=== PATIENT | female | born 1975 | race Caucasian/White ===

== ENCOUNTER 2019-04-19 21:33 | Emergency (ER) | payer MEDICARE, MEDICAID ==
--- NOTE | 2019-04-19 21:56 | EDM.PDOC ---
ED HPI GENERAL MEDICAL PROBLEM - General Chief Complaint: Lower Extremity Injury/Pain Stated Complaint: SURGERY APR 14 NOT DOING WELL Time Seen by Provider: 04/19/19 22:03 History Limitations: Reports: No Limitations - History of Present Illness INITIAL COMMENTS - FREE TEXT/NARRATIVE: 43 years old female patient presented with a chief complaint of worsening pain, swelling and redness of her left thigh area. She had treatment for her venous insufficiency in the left side on April 14. 2 days ago started noticing worsening pain redness and swelling. She'll contacted the office of Dr. Stewart and she was prescribed antibiotic today and she did not fill it because she is allergic to it. Denies any fever denies any chest pain or shortness breath. History of PE denies any trauma or injury other than the surgery. Denies any cough or shortness breath. Denies any abdominal pain diarrhea or constipation. Denies any urinary symptom. Left Knee Pain Score (Numeric/FACES): 8 - Related Data Allergies Allergy/AdvReac Type Severity Reaction Status Date / Time acetaminophen Allergy Rash Verified 04/19/19 22:06 [From Darvocet-N] amoxicillin [From Augmentin] Allergy Rash Verified 04/19/19 22:06 cephacetrile Allergy Rash Verified 04/19/19 22:06 cephalexin [From Keflex] Allergy Rash Verified 04/19/19 22:00 clavulanic acid Allergy Rash Verified 04/19/19 22:06 [From Augmentin] clindamycin Allergy Rash Verified 04/19/19 22:00 latex Allergy Rash Verified 04/19/19 22:00 methylphenidate Allergy Rash Verified 04/19/19 22:06 [From Ritalin] modafinil [From Provigil] Allergy Rash Verified 04/19/19 22:06 Penicillins Allergy Rash Verified 04/19/19 22:00 propoxyphene Allergy Rash Verified 04/19/19 22:06 [From Darvocet-N] silver sulfadiazine Allergy Rash Verified 04/19/19 22:00 [From Silvadene] Home Meds: Home Meds Albuterol [Proventil Neb Soln] 2.5 mg IN DAILY 04/19/19 [History] DULoxetine [Cymbalta] 60 mg PO DAILY 04/19/19 [History] Dextroamphetamine Sulfate [Dexedrine] 45 mg PO BID 04/19/19 [History] Nicotine [Nicotine Patch] 21 mg IN ASDIRECTED 04/19/19 [History] OXcarbazepine [Oxcarbazepine] 450 mg PO DAILY 04/19/19 [History] busPIRone [Buspar] 15 mg PO TID 04/19/19 [History] Review of Systems - Review of Systems Review Of Systems: ROS reveals no pertinent complaints other than HPI. ED EXAM, GENERAL - Physical Exam Exam: See Below Exam Limited By: No Limitations General Appearance: Alert, WD/WN, No Apparent Distress Ears: Normal External Exam, Normal Canal, Hearing Grossly Normal, Normal TMs Ear Exam: Bilateral Ear: Auricle Normal, Canal Normal, TM normal Nose: Normal Inspection, Normal Mucosa, No Blood Throat/Mouth: Normal Inspection, Normal Lips, Normal Teeth, Normal Gums, Normal Oropharynx, Normal Voice, No Airway Compromise Head: Atraumatic, Normocephalic Neck: Normal Inspection, Supple, Non-Tender, Full Range of Motion Respiratory/Chest: No Respiratory Distress, Lungs Clear, Normal Breath Sounds, No Accessory Muscle Use, Chest Non-Tender Cardiovascular: Normal Peripheral Pulses, Regular Rate, Rhythm, No Edema, No Gallop, No JVD, No Murmur, No Rub GI/Abdominal: Normal Bowel Sounds, Soft, Non-Tender, No Organomegaly, No Distention, No Abnormal Bruit, No Mass Rectal (Female) Exam: Normal Exam, Normal Rectal Tone Back Exam: Normal Inspection, Full Range of Motion, NT Extremities: Other ( erythema, tenderness and mild swelling of the medial side of the left thigh just above the knee. CMS intact) Neurological: Alert, Oriented, CN II-XII Intact, Normal Cognition, Normal Gait, Normal Reflexes, No Motor/Sensory Deficits Psychiatric: Normal Affect, Normal Mood Skin Exam: Warm, Dry, Intact, Normal Color, No Rash Lymphatic: No Adenopathy Course - Vital Signs Last Recorded V/S: Last Vital Signs Temp 36.1 C 04/19/19 22:06 Pulse 92 04/19/19 22:06 Resp 16 04/19/19 22:06 BP 159/80 H 04/19/19 22:06 Pulse Ox 99 04/19/19 22:06 - Orders/Labs/Meds Orders: Active Orders 24 hr Category Date Time Status Cardiac Monitoring [RC] .As Directed Care 04/19/19 22:00 Active VL Duplex Lwr Ext Veins Ltd Lt [US] Stat Exams 04/19/19 22:04 Ordered BASIC METABOLIC PANEL,BMP [CHEM] Stat Lab 04/19/19 22:12 Received C-REACTIVE PROTEIN [CHEM] Stat Lab 04/19/19 22:12 Received LACTIC ACID [CHEM] Stat Lab 04/19/19 22:12 Received Labs: Laboratory Tests 04/19/19 Range/Units 22:12 WBC 9.7 (4.5-11.0) K/uL RBC 4.28 (3.30-5.50) M/uL Hgb 13.5 (12.0-15.0) g/dL Hct 40.5 (36.0-48.0) % MCV 95 (80-98) fL MCH 32 H (27-31) pg MCHC 33 (32-36) % Plt Count 303 (150-400) K/uL Neut % (Auto) 52 (36-66) % Lymph % (Auto) 38 (24-44) % [place] % (Auto) 8 H (2-6) % Eos % (Auto) 2 (2-4) % Baso % (Auto) 0 (0-1) % - Re-Assessments/Exams Free Text/Narrative Re-Assessment/Exam: 04/19/19 22:08 Patient was seen and examined shortly after arrival. Stable. Lab and imaging reviewed. DVT study negative for DVT., Normal white count. I did consulted with Dr. Cruz general surgery on-call and he recommended to start some patient on doxycycline and have her follow-up with Dr. Stewart in the clinic within 2 days. Patient agrees with the plan. Stable for discharge. 04/19/19 22:59 Departure - Departure Time of Disposition: 23:00 Disposition: Home, Self-Care 01 Condition: Good Clinical Impression: Cellulitis - Discharge Information *PRESCRIPTION DRUG MONITORING PROGRAM REVIEWED*: Not Applicable *COPY OF PRESCRIPTION DRUG MONITORING REPORT IN PATIENT LARISSA: Not Applicable Referrals: PCP,None [Primary Care Provider] - Forms: ED Department Discharge Care Plan Goals: Rest and stay well-hydrated Follow-up with Dr. Stewart in 2 days Come back if symptom worsen - My Orders Last 24 Hours: My Active Orders 04/19/19 22:00 Cardiac Monitoring [RC] .As Directed 04/19/19 22:04 VL Duplex Lwr Ext Veins Ltd Lt [US] Stat 04/19/19 22:12 BASIC METABOLIC PANEL,BMP [CHEM] Stat C-REACTIVE PROTEIN [CHEM] Stat LACTIC ACID [CHEM] Stat - Assessment/Plan Last 24 Hours: My Active Orders 04/19/19 22:00 Cardiac Monitoring [RC] .As Directed 04/19/19 22:04 VL Duplex Lwr Ext Veins Ltd Lt [US] Stat 04/19/19 22:12 BASIC METABOLIC PANEL,BMP [CHEM] Stat C-REACTIVE PROTEIN [CHEM] Stat LACTIC ACID [CHEM] Stat Plan: Rest and stay well-hydrated Follow-up with Dr. Stewart in 2 days Come back if symptom worsen
--- NOTE | 2019-04-19 23:39 | CRLUS ---
INDICATION: Left lower extremity redness and swelling. History of Varithena procedure. LEFT LOWER EXTREMITY VENOUS DUPLEX ULTRASOUND TECHNIQUE: Duplex sonography using grayscale imaging as well as color and spectral Doppler interrogation was performed over the left lower extremity with attention to the deep venous system. FINDINGS: The left common femoral, femoral, deep femoral, popliteal, and posterior tibial veins show normal compressibility, color Doppler flow, and augmentation response. The greater saphenous vein is patent in the upper left thigh but is thrombosed in the distal left thigh and extending inferiorly to the mid calf. IMPRESSION: 1. No evidence of deep venous thrombosis in the left lower extremity. 2. Superficial venous thrombosis involving the left greater saphenous vein at the level of the distal left thigh inferiorly to the left mid calf. This may be due to the patient`s prior Varithena procedure. CAITY CURRAN MD [facility] Dictated by Odell Curran MD @ 04/19/2019 11:38:05 PM Dictated by: Odell Curran MD @ 04/19/2019 23:38:29 (Electronically Signed)
== END 2019-04-19 23:10 | disposition home or self-care (01) ==
LOC: JP.ED 21:33
DX: L03.116 Cellulitis of left lower limb (principal); Z88.0 Allergy status to penicillin; Z91.040 Latex allergy status; Z88.1 Allergy status to other antibiotic agents; Z88.8 Allergy status to other drugs, medicaments and biological substances; Z79.899 Other long term (current) drug therapy
CPT/HCPCS: 36415; 80048; 83605; 85025; 86140; 93971-LT; 99283; 99284-25

== ENCOUNTER 2019-08-27 21:42 | Emergency (ER) | payer MEDICARE, MEDICAID ==
--- NOTE | 2019-08-27 22:34 | EDM.PDOC ---
ED HPI GENERAL MEDICAL PROBLEM - General Chief Complaint: Genitourinary Problem Stated Complaint: PAIN Time Seen by Provider: 08/27/19 22:28 Source of Information: Reports: Patient History Limitations: Reports: No Limitations - History of Present Illness INITIAL COMMENTS - FREE TEXT/NARRATIVE: pt arrived with pain in the left flank area. She states the pain comes around to the front. She has been lifting and moving recently. She is not nauseated and vomiting. Onset: Other (pain started last nite. ) Duration: Hour(s): Location: Reports: Other ( left flank. ) Associated Symptoms: Reports: Other (urinary frequency. ) Left Back Pain Score (Numeric/FACES): 9 - Related Data Allergies Allergy/AdvReac Type Severity Reaction Status Date / Time acetaminophen Allergy Rash Verified 08/27/19 22:14 [From Darvocet-N] amoxicillin [From Augmentin] Allergy Rash Verified 08/27/19 22:14 cephacetrile Allergy Rash Verified 08/27/19 22:14 cephalexin [From Keflex] Allergy Rash Verified 08/27/19 22:14 clavulanic acid Allergy Rash Verified 08/27/19 22:14 [From Augmentin] clindamycin Allergy Rash Verified 08/27/19 22:14 latex Allergy Rash Verified 08/27/19 22:14 methylphenidate Allergy Rash Verified 08/27/19 22:14 [From Ritalin] modafinil [From Provigil] Allergy Rash Verified 08/27/19 22:14 Penicillins Allergy Rash Verified 08/27/19 22:14 propoxyphene Allergy Rash Verified 08/27/19 22:14 [From Darvocet-N] silver sulfadiazine Allergy Rash Verified 08/27/19 22:14 [From Silvadene] Home Meds: Home Meds Albuterol [Proventil Neb Soln] 2.5 mg IN DAILY PRN 04/19/19 [History] DULoxetine [Cymbalta] 60 mg PO DAILY 04/19/19 [History] Dextroamphetamine Sulfate [Dexedrine] 45 mg PO BID 04/19/19 [History] busPIRone [Buspar] 15 mg PO TID 04/19/19 [History] Nicotine [Nicotine Patch] 14 mg TD DAILY 08/27/19 [History] Past Medical History HEENT History: Reports: Impaired Vision Cardiovascular History: Reports: Aneurysm, Arrhythmia, Blood Clots/VTE/DVT, Hypertension Gastrointestinal History: Reports: Irritable Bowel Syndrome [employer]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: Musculoskeletal History: Reports: Arthritis Neurological History: Reports: Headaches, Chronic, Other (See Below) Other Neuro History: carotid aneurysms Psychiatric History: Reports: Anxiety, Depression, PTSD Dermatologic History: Reports: Psoriasis - Past Surgical History Head Surgeries/Procedures: Reports: None HEENT Surgical History: Reports: Oral Surgery GI Surgical History: Reports: Appendectomy, Cholecystectomy Neurological Surgical History: Reports: None Musculoskeletal Surgical History: Reports: None Dermatological Surgical History: Reports: Plastic Surgical Reconstruction/Repair Social & Family History - Family History Family Medical History: Noncontributory - Tobacco Use Smoking Status *Q: Current Every Day Smoker Years of Tobacco use: 20 Packs/Tins Daily: 0.5 Second Hand Smoke Exposure: No - Caffeine Use Caffeine Use: Reports: Soda Caffeine Use Comment: one pop per day - Recreational Drug Use Recreational Drug Use: No ED ROS GENERAL - Review of Systems Review Of Systems: See Below Constitutional: Reports: No Symptoms HEENT: Reports: No Symptoms Respiratory: Reports: No Symptoms Cardiovascular: Reports: No Symptoms Endocrine: Reports: No Symptoms GI/Abdominal: Reports: Other (pt is having left flank pain. ) : Reports: No Symptoms Musculoskeletal: Reports: Other (pain in the left flank area. ) Skin: Reports: No Symptoms Neurological: Reports: No Symptoms Psychiatric: Reports: No Symptoms ED EXAM, GI/ABD - Physical Exam Exam: See Below Text/Narrative:: pt arrived with urinary frequwncy and left flank pain. She does not have a history of kidney stones. She does not have dyuria. Exam Limited By: No Limitations General Appearance: Alert, Anxious, Mild Distress Ears: Normal TMs Nose: Normal Inspection Throat/Mouth: Normal Inspection Head: Atraumatic Neck: Normal Inspection Respiratory/Chest: No Respiratory Distress Cardiovascular: Regular Rate, Rhythm GI/Abdominal Exam: Soft, Other (pt is tender in the left flank area. she also definitely has muscle spasm above the flank area ) (Female) Exam: Deferred Rectal (Female) Exam: Deferred Back Exam: Normal Inspection Extremities: Normal Inspection Course - Vital Signs Last Recorded V/S: Last Vital Signs Temp 36.1 C 08/27/19 22:00 Pulse 90 08/27/19 22:13 Resp 16 08/27/19 22:13 BP 141/64 H 08/27/19 22:13 Pulse Ox 96 08/27/19 22:13 - Orders/Labs/Meds Orders: Active Orders 24 hr Category Date Time Status CULTURE URINE [RM] Stat Lab 08/27/19 23:12 Received Levofloxacin/Dextrose 5%-Water [Levaquin in D5W 500 MG/ Med 08/27/19 23:10 Active 100 ML] 500 mg Premix Bag 1 bag IV ONETIME Sodium Chloride 0.9% [Normal Saline] 1,000 ml Med 08/27/19 23:15 Active IV ASDIRECTED Medication Orders Sodium Chloride (Normal Saline) 1,000 mls @ 999 mls/hr IV ASDIRECTED BRI Last Admin: 08/27/19 23:36 Dose: 999 mls/hr Levofloxacin/Dextrose 500 mg/ (Premix) 100 mls @ 100 mls/hr IV ONETIME ONE Stop: 08/28/19 00:09 Last Admin: 08/27/19 23:36 Dose: 100 mls/hr Labs: Laboratory Tests 08/27/19 08/27/19 08/27/19 Range/Units 22:35 22:35 22:38 WBC 7.4 (4.5-11.0) K/uL RBC 4.26 (3.30-5.50) M/uL Hgb 12.7 (12.0-15.0) g/dL Hct 39.3 (36.0-48.0) % MCV 92 (80-98) fL MCH 30 (27-31) pg MCHC 32 (32-36) % Plt Count 290 (150-400) K/uL Neut % (Auto) 44 (36-66) % Lymph % (Auto) 45 H (24-44) % [place] % (Auto) 9 H (2-6) % Eos % (Auto) 2 (2-4) % Baso % (Auto) 0 (0-1) % Sodium 140 (140-148) mmol/L Potassium 3.7 (3.6-5.2) mmol/L Chloride 105 (100-108) mmol/L Carbon Dioxide 26 (21-32) mmol/L Anion Gap 8.8 (5.0-14.0) mmol/L BUN 9 (7-18) mg/dL Creatinine 0.7 (0.6-1.0) mg/dL Est Cr Clr Drug Dosing 91.32 mL/min Estimated GFR (MDRD) > 60 (>60) Glucose 113 H (74-106) mg/dL Calcium 8.6 (8.5-10.1) mg/dL Total Bilirubin 0.2 (0.2-1.0) mg/dL AST 16 (15-37) U/L ALT 28 (12-78) U/L Alkaline Phosphatase 68 (46-116) U/L Total Protein 7.2 (6.4-8.2) g/dL Albumin 3.4 (3.4-5.0) g/dL Globulin 3.8 H (2.3-3.5) g/dL Albumin/Globulin Ratio 0.9 L (1.2-2.2) Urine Color Yellow (YELLOW) Urine Appearance Clear (CLEAR) Urine pH 6.0 (5.0-8.0) Ur Specific [place] >= 1.030 (1.008-1.030) Urine Protein Negative (NEGATIVE) mg/dL Urine Glucose (UA) Negative (NEGATIVE) mg/dL Urine Ketones Negative (NEGATIVE) mg/dL Urine Occult Blood Negative (NEGATIVE) Urine Nitrite Negative (NEGATIVE) Urine Bilirubin Negative (NEGATIVE) Urine Urobilinogen 0.2 (0.2-1.0) EU/dL Ur Leukocyte Esterase Trace H (NEGATIVE) Urine RBC 0-5 (0-5) Urine WBC 0-5 (0-5) Ur Epithelial Cells Few Amorphous Sediment Moderate Urine Bacteria Few Urine Mucus Not seen Urine Other Meds: Medications Generic Name Dose Route Start Last Admin Trade Name Freq PRN Reason Stop Dose Admin Sodium Chloride 1,000 mls @ 999 mls/hr 08/27/19 23:15 08/27/19 23:36 Normal Saline IV 999 mls/hr ASDIRECTED BRI Administration Levofloxacin/Dextrose 500 mg/ 100 mls @ 100 mls/hr 08/27/19 23:10 08/27/19 23 :36 Premix IV 08/28/19 00:09 100 mls/hr ONETIME ONE Administration Discontinued Medications Generic Name Dose Route Start Last Admin Trade Name Freq PRN Reason Stop Dose Admin Baclofen 10 mg 08/27/19 23:17 08/27/19 23:36 Lioresal PO 08/27/19 23:18 10 mg ONETIME ONE Administration - Re-Assessments/Exams Free Text/Narrative Re-Assessment/Exam: 08/27/19 23:48 pt was given a liter of fluid. She was given levoquin 500mg iv. A urine culture was set up. She clearly has some muscle pain present. Will cover with antibiotics until her culture is done. Departure - Departure Time of Disposition: 23:50 Disposition: Home, Self-Care 01 Condition: Fair Clinical Impression: UTI (urinary tract infection), Muscle spasm - Discharge Information Referrals: Yvonne Fatima CNM [Primary Care Provider] - Forms: ED Department Discharge Care Plan Goals: push fluids, tylenol or motrin for pain. Motrin 600 mg q6h as needed for pain. baclofen 10 mg bid for muscle spasm, levoquin 500mg daily for 5 days, heat -- moist to left flank area. Sepsis Event Note - Evaluation Sepsis Screening Result: No Definite Risk - Focused Exam Vital Signs: Vital Signs Temp Pulse Resp BP Pulse Ox 08/27/19 22:13 90 16 141/64 H 96 08/27/19 22:00 36.1 C 75 18 141/64 H 91 L Date Exam was Performed: 08/27/19 Time Exam was Performed: 23:48 - My Orders Last 24 Hours: My Active Orders 08/27/19 23:10 Levofloxacin/Dextrose 5%-Water [Levaquin in D5W 500 MG/100 ML] 500 mg Premix Bag 1 bag IV ONETIME 08/27/19 23:12 CULTURE URINE [RM] Stat 08/27/19 23:15 Sodium Chloride 0.9% [Normal Saline] 1,000 ml IV ASDIRECTED - Assessment/Plan Last 24 Hours: My Active Orders 08/27/19 23:10 Levofloxacin/Dextrose 5%-Water [Levaquin in D5W 500 MG/100 ML] 500 mg Premix Bag 1 bag IV ONETIME 08/27/19 23:12 CULTURE URINE [RM] Stat 08/27/19 23:15 Sodium Chloride 0.9% [Normal Saline] 1,000 ml IV ASDIRECTED
[2019-08-27] MEDS ORDERED: Levofloxacin/Dextrose 5%-Water 500 MG in Premix Bag 1 BAG IV ONE (23:10)
[2019-08-27] MEDS ORDERED: Sodium Chloride 0.9% 1,000 ML IV SCH (23:15)
[2019-08-27] MEDS ORDERED: Baclofen 10 MG Tab PO ONE (23:17)
== END 2019-08-28 01:47 | disposition home or self-care (01) ==
LOC: JP.ED 21:42
DX: N39.0 Urinary tract infection, site not specified (principal); M62.838 Other muscle spasm; I10 Essential (primary) hypertension; F32.9 Major depressive disorder, single episode, unspecified; F41.9 Anxiety disorder, unspecified; F17.210 Nicotine dependence, cigarettes, uncomplicated; Z88.6 Allergy status to analgesic agent; Z88.0 Allergy status to penicillin; Z88.1 Allergy status to other antibiotic agents; Z91.040 Latex allergy status; Z79.899 Other long term (current) drug therapy
CPT/HCPCS: 36415; 80053; 81001; 85025; 87086; 96365; 99283; 99284; A9270; J1956; J7030

== ENCOUNTER 2019-12-02 14:22 | Emergency (ER) | payer MEDICARE, MEDICAID ==
--- NOTE | 2019-12-02 16:17 | CRLCT ---
INDICATION: Syncope. COMPARISON: None. TECHNIQUE: Noncontrast CT of the head. FINDINGS: Endovascular coiling of a aneurysm in the left aspect the suprasellar cistern. Associated metallic streak artifact. Otherwise, normal brain parenchymal morphology. No acute intracranial hemorrhage, acute infarct, mass effect, or fracture. No midline shift. No abnormal ventricular dilatation. Normal calvarium and skull base. Visualized paranasal sinuses and mastoid air cells are clear. Normal orbits bilaterally. IMPRESSION: 1. No acute intracranial abnormality. 2. Normal brain parenchymal morphology. Dictated by Alpesh Smart MD @ 12/02/2019 4:15:57 PM Please note that all CT scans at this facility use dose modulation, iterative reconstruction, and/or weight-based dosing when appropriate to reduce radiation dose to as low as reasonably achievable. Dictated by: Alpesh Smart MD @ 12/02/2019 16:16:06 (Electronically Signed)
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
== END 2019-12-02 17:38 | disposition home or self-care (01) ==
LOC: JP.ED 14:22
DX: R55 Syncope and collapse (principal); I10 Essential (primary) hypertension; F41.9 Anxiety disorder, unspecified; F32.9 Major depressive disorder, single episode, unspecified; Z79.899 Other long term (current) drug therapy; Z88.6 Allergy status to analgesic agent; Z88.1 Allergy status to other antibiotic agents; Z88.8 Allergy status to other drugs, medicaments and biological substances; Z91.040 Latex allergy status; Z88.0 Allergy status to penicillin
CPT/HCPCS: 36415; 70450; 80048; 80305-QW; 81001; 84443; 85025; 99283; 99284-25

== ENCOUNTER 2024-01-21 18:10 | Emergency (ER) | payer MEDICARE, MEDICAID ==
[2024-01-21 19:00] LABS: BASOPHILS ABSOLUTE AUTO 0.04 K/uL (0.00-0.10); BASOPHILS PERCENT AUTO 0.4 % (0.1-1.3); EOSINOPHILS ABSOLUTE AUTO 0.03 K/uL (0.00-0.40); EOSINOPHILS PERCENT AUTO 0.3 % (0.0-5.4); HEMATOCRIT 45.2 % (34.3-46.0); HEMOGLOBIN 15.8 g/dL (11.2-15.5); IMMATURE GRAN ABSOLUTE AUTO 0.08 K/uL (0.00-0.23); IMMATURE GRAN PERCENT AUTO 0.7 % (0.0-0.7); LYMPHOCYTES PERCENT AUTO 21.1 % (11.4-47.7); MEAN CORPUSCULAR HEMOGLOBIN 30.9 pg (31.6-35.5); MEAN CORPUSCULAR VOLUME 88.5 fL (81.4-99.0); MONOCYTES PERCENT AUTO 5.3 % (3.3-12.6); NEUTROPHILS ABSOLUTE AUTO 8.23 K/uL (1.0-7.6); NEUTROPHILS PERCENT AUTO 72.2 % (40.0-78.1); PLATELET COUNT,PLT 266 K/uL (130-375); RED BLOOD CELL COUNT 5.11 M/uL (3.77-5.24); WHITE BLOOD CELL COUNT,WBC 11.4 K/uL (3.2-11.0)
[2024-01-21] MEDS: Sodium Chloride 0.9% 1,000 ML IV ONE (19:10)
[2024-01-21] MEDS: Ondansetron 4 MG/2 ML SDV IVPUSH ONE ×2 (19:10→20:40)
[2024-01-21 19:40] LABS: A/G RATIO 0.8 (1.2-2.2); ALANINE AMINOTRANSFERASE,ALT 31 U/L (12-78); ALBUMIN 3.6 g/dL (3.4-5.0); ALKALINE PHOSPHATASE 85 U/L (46-116); ASPARTATE AMNIOTRANSFERASE,AST 22 U/L (15-37); BILIRUBIN TOTAL 0.6 mg/dL (0.2-1.0); BLOOD UREA NITROGEN,BUN 12 mg/dL (7-18); CALCIUM 9.5 mg/dL (8.5-10.1); CARBON DIOXIDE,CO2 23 mmol/L (21-32); CHLORIDE,CL 102 mmol/L (100-108); CREATININE 0.7 mg/dL (0.6-1.0); EST CRCL DRUG DOSING (CG) 83.95 mL/min; ESTIMATED GFR 106 mL/min (>60); GLUCOSE RANDOM 136 mg/dL (74-106); POTASSIUM,K 3.6 mmol/L (3.6-5.2); PROTEIN TOTAL,TP 8.2 g/dL (6.4-8.2); SODIUM,NA 138 mmol/L (140-148)
[2024-01-21 19:52] LABS: ANION GAP 16.6 mmol/L (5.0-14.0)
== END 2024-01-21 20:46 | disposition home or self-care (01) ==
LOC: JP.ED 18:10
DX: R11.2 Nausea with vomiting, unspecified (principal); T38.3X5A Adverse effect of insulin and oral hypoglycemic [antidiabetic] drugs, initial encounter; R10.84 Generalized abdominal pain; I10 Essential (primary) hypertension; E11.9 Type 2 diabetes mellitus without complications; F17.200 Nicotine dependence, unspecified, uncomplicated; Z79.85 Long-term (current) use of injectable non-insulin antidiabetic drugs; Z88.6 Allergy status to analgesic agent; Z88.0 Allergy status to penicillin; Z91.040 Latex allergy status; Z88.1 Allergy status to other antibiotic agents; Z91.048 Other nonmedicinal substance allergy status; Z79.899 Other long term (current) drug therapy; Z90.49 Acquired absence of other specified parts of digestive tract
CPT/HCPCS: 36415; 80053; 83690; 85025; 96361; 96374; 96376; 99284; J2405; J7030